=== PATIENT | female | born 1965 | race Caucasian/White ===

== ENCOUNTER 2018-11-14 17:55 | Emergency (ER) | payer OTHER ==
[~2018-11-14] VITALS: Ht 157.5 cm; Wt 68.9 kg
[2018-11-14 18:18] VITALS: BP 134/83
--- NOTE | 2018-11-14 18:25 | NUR ---
BIB DAUGHTER. AAO X4. C/O RASH X 1 MONTH, WORST EARLIER TODAY ALL OVER HER BODY. PT WENT TO PCP AND WAS PRESCRIBED TOPICAL OINTMENT, BUT WITH NO RELIEF. NO SOB NOTED. STEADY GAIT. HOB UP. BED SIDE RAILS UP X1. ON LOW BED POSITION, LOCKED. ER MADE AWARE OF PT STATUS.
[2018-11-14 19:07] VITALS: BP 119/86
--- NOTE | 2018-11-14 19:10 | NUR ---
RECEIVED REPORT FROM STEPHANI BELL.
--- NOTE | 2018-11-14 19:11 | NUR ---
Patient discharged with v/s stable. Written and verbal after care instructions given and explained. Patient alert, oriented and verbalized understanding of instructions. Ambulatory with steady gait. All questions addressed prior to discharge. ID band removed. Patient advised to follow up with PMD. Rx of PREDNISONE, TRIAMCINOLONE given. Patient educated on indication of medication including possible reaction and side effects. Opportunity to ask questions provided and answered.
== END 2018-11-14 19:11 | disposition home or self-care (01) ==
LOC: MED 17:55
DX: L30.9 Dermatitis, unspecified (principal)
CPT/HCPCS: 99283